=== PATIENT | male | born 1960 | race Caucasian/White ===

== ENCOUNTER → 2018-11-21 | Day surgery (SDC) | payer OTHER ==
[~2018-11-21] MED LIST: Lactated Ringers 1,000 ML IV SCH; Midazolam 1 MG/ML 2 ML SDV ONE; Propofol 200 MG/20 ML SDV ONE; fentaNYL 100 MCG/2 ML SDV ONE
[2018-11-21 10:30] VITALS: BP 145/83; PULSE 64
--- NOTE | 2018-11-21 15:31 | OR ---
DATE OF PROCEDURE: 11/21/2018 PREOPERATIVE DIAGNOSIS: History of colon polyps. POSTOPERATIVE DIAGNOSES: 1. Diverticulosis. 2. History of colon polyps. PROCEDURE: Colonoscopy to the cecum. SURGEON: Jefferson Collins MD ANESTHESIA: IV anesthesia with monitored anesthesia care. INDICATION: This 57-year-old white male is referred for a colonoscopy because of a history of colon polyps. He says his last colonoscopy was done a couple of years ago. I counseled him for the procedure including risks and alternatives, and he gave his informed consent to proceed. DESCRIPTION OF PROCEDURE: The patient was placed in the left lateral decubitus position. IV anesthesia was administered by the Anesthesia Service. Time-out was held. A rectal exam was performed, which was unremarkable. The flexible video Olympus colonoscope was introduced through his anus, up his rectum, and out his colon all way to the cecum. En route, we saw a few scattered left-sided diverticula. There was no bleeding or inflammation associated with them. Once the cecum was reached, the scope was slowly withdrawn examining the mucosa throughout. No additional mucosal abnormalities were noted. The scope was retroflexed in the rectum with the distal rectum appearing unremarkable. The scope was straightened and removed. He tolerated the procedure well. Jefferson Collins MD /[id number] MTDD
== END ==
LOC: JP.SDS 07:10
PROVIDERS: ATTEND Surgery
DX: Z12.11 Encounter for screening for malignant neoplasm of colon (principal); K57.30 Diverticulosis of large intestine without perforation or abscess without bleeding; E11.65 Type 2 diabetes mellitus with hyperglycemia; F17.210 Nicotine dependence, cigarettes, uncomplicated; Z86.010 Personal history of colon polyps
CPT/HCPCS: 45378; J2250; J2704; J3010; J7120

== ENCOUNTER 2021-12-03 00:55 | Emergency (ER) | payer OTHER, BC ==
[2021-12-03 01:02] VITALS: BP 179/85; PULSE 73
[2021-12-03] MEDS ORDERED: Cyclopentolate 1% Opth Soln 2 ML Bottle EYELF ONE (01:11)
[2021-12-03] MEDS ORDERED: HYDROmorphone 1 MG/ML Syringe IM ONE (01:19)
== END 2021-12-03 02:27 | disposition home or self-care (01) ==
LOC: JP.ED 00:55
DX: H16.133 Photokeratitis, bilateral (principal); E11.9 Type 2 diabetes mellitus without complications; F17.210 Nicotine dependence, cigarettes, uncomplicated
CPT/HCPCS: 96372; 99283; J1170

== ENCOUNTER 2025-01-18 21:30 | Emergency (ER) | payer BC ==
[2025-01-18] MEDS ORDERED: Sodium Chloride 0.9% 10 ML Syringe FLUSH PRN (21:36)
[2025-01-18 21:42] LABS: PLATELET COUNT,PLT 275 K/uL (130-375); RED BLOOD CELL COUNT 3.27 M/uL (4.14-5.76); WHITE BLOOD CELL COUNT,WBC 9.4 K/uL (3.2-11.0)
[2025-01-18 21:58] LABS: BLOOD UREA NITROGEN,BUN 12 mg/dL (7-18); CARBON DIOXIDE,CO2 30 mmol/L (21-32); CHLORIDE,CL 97 mmol/L (100-108); CREATININE 0.9 mg/dL (0.8-1.3); ESTIMATED GFR 96 mL/min (>60); GLUCOSE RANDOM 160 mg/dL (74-106); POTASSIUM,K 3.3 mmol/L (3.6-5.2); SODIUM,NA 138 mmol/L (140-148)
[2025-01-18] MEDS: Lactated Ringers 1,000 ML IV ONE (21:58)
[2025-01-18 21:59] LABS: BAND ABSOLUTE MAN 0.38 K/uL; BAND PERCENT MAN 4 % (5-11); EOSINOPHILS ABSOLUTE MAN 0.19 K/uL (0.00-0.40); EOSINOPHILS PERCENT MAN 2 % (2-4); LYMPHOCYTES ABSOLUTE MAN 3.01 K/uL (0.8-3.3); LYMPHOCYTES PERCENT MAN 32 % (24-44); MONOCYTES ABSOLUTE MAN 0.56 K/uL (0.20-0.90); MONOCYTES PERCENT MAN 6 % (2-6); NEUTROPHILS ABSOLUTE MAN 5.26 K/uL (1.0-7.6); SEG NEUTROPHILS PERCENT MAN 56 % (36-66)
[2025-01-18 22:00] LABS: ATYPICAL LYMPHOCYTES RARE
[2025-01-18 22:18] VITALS: BP 107/47; PULSE 60
[2025-01-18] MEDS: fentaNYL 100 MCG/2 ML SDV IVPUSH ONE (22:32)
[2025-01-18] MEDS: Iopamidol 612 MG/ML 100 ML Bottle IV ONE (22:39)
[2025-01-19] MEDS: Propofol 200 MG/20 ML SDV ONE (00:01)
[2025-01-19] MEDS: Propofol 200 MG/20 ML SDV IVPUSH ONE (00:01)
[2025-01-19] MEDS: Diphtheria,Pertussis(Acell),Tetanus Vaccine 0.5 ML Syringe IM ONE (00:20)
== END 2025-01-19 01:14 | disposition home or self-care (01) ==
LOC: JP.ED 21:30
DX: S82.891A Other fracture of right lower leg, initial encounter for closed fracture (principal); E11.9 Type 2 diabetes mellitus without complications; M19.90 Unspecified osteoarthritis, unspecified site; Z79.899 Other long term (current) drug therapy; X58.XXXA Exposure to other specified factors, initial encounter
CPT/HCPCS: 27781; 36415; 71260; 73610; 74177; 76000; 80048; 85025; 90471; 90715; 96374; 96375; 99156; 99283; 99284; J1171; J1790; J2704; J3010; J7120; Q9967

== ENCOUNTER 2025-01-22 07:46 | Day surgery (SDC) | payer BC ==
[~2025-01-22 07:46] MED LIST changes: -Lactated Ringers 1,000 ML IV SCH
[2025-01-22] MEDS: Lactated Ringers 1,000 ML IV SCH (08:08)
[2025-01-22] MEDS: Nozin Nasal Sanitizer NASBOTH ONE (08:30)
[2025-01-22] MEDS ORDERED: fentaNYL 100 MCG/2 ML SDV ONE (10:09)
[2025-01-22] MEDS: Acetaminophen/oxyCODONE 325-5 MG Tab PO PRN (12:25)
[2025-01-22 14:05] VITALS: BP 130/66; PULSE 53
== END 2025-01-22 15:00 | disposition home or self-care (01) ==
LOC: JP.SDS 07:46
PROVIDERS: ATTEND Specialist
DX: S82.891A Other fracture of right lower leg, initial encounter for closed fracture (principal); E11.9 Type 2 diabetes mellitus without complications; I10 Essential (primary) hypertension; Z87.891 Personal history of nicotine dependence; Z79.84 Long term (current) use of oral hypoglycemic drugs; Z79.899 Other long term (current) drug therapy; X58.XXXA Exposure to other specified factors, initial encounter
CPT/HCPCS: 27695; 27792; 76000; 93005; 93010; A9270; C1713; J0665; J0690; J2250; J2704; J3010; J7120

== ENCOUNTER 2025-03-29 06:37 | Day surgery (SDC) | payer BC ==
[2025-03-29] MEDS ORDERED: Midazolam 1 MG/ML 2 ML SDV ONE (07:17)
[2025-03-29] MEDS ORDERED: fentaNYL 50 MCG/ML SDV ONE (07:17)
[2025-03-29] MEDS ORDERED: Propofol 200 MG/20 ML SDV ONE (07:17)
[2025-03-29] MEDS: Lactated Ringers 1,000 ML IV SCH (07:22)
[2025-03-29 09:32] VITALS: BP 141/70; PULSE 53
== END 2025-03-29 09:30 | disposition home or self-care (01) ==
LOC: JP.SDS 06:37
PROVIDERS: ATTEND Surgery
DX: Z12.11 Encounter for screening for malignant neoplasm of colon (principal); D12.3 Benign neoplasm of transverse colon; K57.30 Diverticulosis of large intestine without perforation or abscess without bleeding; I10 Essential (primary) hypertension; E11.9 Type 2 diabetes mellitus without complications; Z79.84 Long term (current) use of oral hypoglycemic drugs; Z87.891 Personal history of nicotine dependence; Z79.899 Other long term (current) drug therapy
CPT/HCPCS: 00811; 45385; J2250; J2704; J3010; J7120; 88305